=== PATIENT | female | born 1945 | race Caucasian/White ===

== ENCOUNTER → 2016-10-29 | Outpatient (CLI) | payer BC ==
[~2016-10-29] MED LIST: ASPI81TA28 PO; CALC-358 PO; MULT-190 PO; MULT-506 PO; MULT-580 PO
--- NOTE | 2016-10-29 13:23 | DIAGNOSTIC IMAGING REPORT ---
LUMBAR SPINE 5 VIEWS HISTORY: Pain M54.5 Low back [id number] COMPARISON: None. FINDINGS: There is no fracture. Grade 2 anterolisthesis of L4 on L5. 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 Mild degenerative intervertebral this changes throughout. More significant degenerative change at L4-L5 and L5-S1. IMPRESSION: No fracture within the lumbar spine. Degenerative change. Scoliosis. No acute process. Electronically signed by: Alfredo Alcala M.D. 10/29/2016 1:22 PM Dictated Date/Time: 10/29/2016 1:20 PM
== END | disposition home or self-care (01) ==
LOC: C.RADBC 12:47
PROVIDERS: ATTEND Family Medicine
DX: M54.5 Low back pain (principal)

== ENCOUNTER → 2016-12-31 | Outpatient (CLI) | payer BC ==
[~2016-12-31] MED LIST changes: +ASPI-232 PO; +BIOTCAP2; +DENO60SO INJ; +GADAVIST IV PRN; +TYLOTC500 PO
[2016-12-31 09:58] LABS: BLOOD UREA NITROGEN 17 mg/dl (7-18); BUN/CREATININE RATIO 17.8 (10-20); CALCIUM 9.6 mg/dl (8.5-10.1); CARBON DIOXIDE 30 mmol/L (21-32); CHLORIDE 103 mmol/L (98-107); CREATININE 0.93 mg/dl (0.60-1.20); GLUCOSE 92 mg/dl (70-99); POTASSIUM 4.2 mmol/L (3.5-5.1); SODIUM 139 mmol/L (136-145)
--- NOTE | 2016-12-31 11:20 | DIAGNOSTIC IMAGING REPORT ---
MRI OF THE LUMBAR SPINE WITH AND WITHOUT CONTRAST CLINICAL HISTORY: Low back pain. Bilateral lower extremity numbness. COMPARISON STUDY: Lumbar spine radiographs October 29, 2016. TECHNIQUE: Utilizing a 1.5 Alexus magnet and dedicated coil, multiplanar, multiecho imaging of the lumbar spine was performed before and after uneventful IV administration of 4.5 mL of Gadavist. FINDINGS: For purposes of numbering on this exam, the L5-S1 disc space is assigned to axial image 27 of 33. There is mild to moderate S-shaped scoliosis of the focal lumbar spine. No suspicious marrow replacement is present. 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 There is no intracanalicular mass. Conus terminates at the upper L1 level. Paravertebral soft tissues are unremarkable. Note is made of a 5 mm anterolisthesis of L4 and L5 and 4 mm anterolisthesis of L5 on S1. No pars defects are identified although these are suboptimally assessed by MRI. L1-2: Central canal and neural foramen are patent. L2-3: Central canal and neural foramen are patent. L3-4: Central canal and neural foramina patent. L4-5: There is grade I anterolisthesis with uncovering of the disc. The central canal is patent. There is moderate left and mild right neural foraminal stenosis. L5-S1: There is grade I anterolisthesis. There is mild narrowing of the central canal. There is mild to moderate narrowing of both neural foramen. IMPRESSION: 1. Grade I anterolisthesis of L4 and L5 and L5 on S1. 2. Mild to moderate S-shaped scoliosis of the thoracolumbar spine. 3. Mild central canal stenosis at L5-S1. 4. Multilevel neural foraminal stenosis most pronounced at the L4-L5 level, as described above. Electronically signed by: Krishna Walker M.D. 12/31/2016 11:18 AM Dictated Date/Time: 12/31/2016 11:06 AM
== END | disposition home or self-care (01) ==
LOC: C.MRI 09:22
PROVIDERS: ATTEND Physician Assistant
DX: M54.5 Low back pain (principal)

== ENCOUNTER → 2017-07-02 | Outpatient (CLI) | payer BC ==
[~2017-07-02] MED LIST changes: -ASPI-232 PO; -BIOTCAP2; -GADAVIST IV PRN
[2017-07-02 13:25] VITALS: BP 113/67; PULSE 60; TEMP 36.9; O2SAT 98
--- NOTE | 2017-07-02 14:29 | Radiation Oncology Follow-Up ---
Radiation Oncology Follow-Up Date of Visit Jul 02, 2017. 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 She is being followed by Dr. Apple. She had been noted to have a fold on the lateral aspect of the breast. She has discomfort associated with this area. It was felt that the implant had shifted. She has noted no masses and no change of the axilla. She had an MRI to evaluate the implant in the past. This did not show any evidence of rupture. There was no MRI evidence of malignancy. She was seen in medical oncology and referred to Dr. Apple. She will be undergoing replacement of the implant next week. She continues with follow-up mammography of the right breast. Allergies Coded Allergies: Codeine (Verified Allergy, Mild, SHAKY, 07/06/15) NERVOUS AND SHAKY. Home Medications Scheduled Aspirin (Aspirin Ec), 81 MG PO DAILY Calcium Citrate-Vitamin D (Calcium Citrate+ D), 1 TAB PO BID Multiple Vitamins W/ Minerals (Hair/Skin/Nails), PO TID Multivitamin (Multivitamin), 1 TAB PO QAM Ocuvite Preservision (Ocuvite Preservision), 1 TAB PO BID Review of Systems Gastrointestinal: Symptoms: WNL Oral: Symptoms: No Problems Respiratory: Symptoms: WNL Urinary: Symptoms: WNL Skin: Symptoms: No Problems Breast: Right Upper Arm Measurement: 23.5 Right Mid Arm Measurement: 21.0 Right Wrist Measurement: 14.3 Left Upper Arm Measurement: 22.5 Left Mid Arm Measurement: 20.5 Left Wrist Measurement: 14.5 Arm Dominence: Right Physical Exam Vital Signs Date Time Temp Pulse Resp B/P (MAP) Pulse Ox O2 Delivery O2 Flow Rate FiO2 07/02/17 13:25 36.9 60 20 113/67 98 Pain: Patient Pain Scale: 0 - 10 Initial Pain Intensity: 4.0 Fatigue: None General Appearance: no apparent distress Eyes: normal inspection, EOMI ENT: normal ENT inspection, hearing grossly normal Neck: no adenopathy, thyroid normal Respiratory/Chest: lungs clear, no respiratory distress, no accessory muscle use Breast: Breast examination reveals implant of the left breast. The incision area is well-healed. She has a mild indentation of the lateral medial aspect of the breast. There are no masses or tenderness and no axillary adenopathy. The nipple is tattooed on. There is no telangiectasia. Using the [place] score cosmesis she has a good outcome. The right breast showed no masses or tenderness and no axillary adenopathy. Cardiovascular: regular rate, rhythm, no gallop, no murmur Abdomen: non tender, soft Extremities: no pedal edema Neurologic/Psychiatric: no motor/sensory deficits, alert, normal mood/affect Skin: warm/dry Lymphatic: no adenopathy Additional Studies Patient: SUZY SMITH [facility] Rec: [id number] Address1: [address] [place] [address] Address2: [facility] ID: [id number] Date: 1945 Sex: F Ref Phy: Att Phy: Thom Boston D.O.Int.Med. Cara Phy: Thom Boston D.O.Int.Med. Inter Phy: Pk Davis [facility] Zip: [place] [address] SC: C.MAMM Report #: [id number] Home Theater Installer: KILLIAN Diagnosis: ASYMPTOMATIC, LEFT BREAST CA, IMPLANT Service Date: 07/28/16 MNE: [id number] Ordering Dr: Thom Boston D.O. CC: Thom Boston D.O.Int.Med. CONF: DICTATED BY: Pk Davis MD MAMMOGRAPHY REPORT UNILATERAL RIGHT DIGITAL SCREENING MAMMOGRAM TOMOSYNTHESIS WITH CAD: 07/28/2016 CLINICAL HISTORY: Asymptomatic. Personal history of breast cancer. TECHNIQUE: Breast tomosynthesis, in addition to standard 2D mammography was performed.. Current study was also evaluated with a Computer Aided Detection ( CAD) system. COMPARISON: Comparison is made to exams dated: 07/24/2015 mammogram, 07/05/2014 mammogram, and 07/04/2013 mammogram - [facility]. BREAST COMPOSITION: The tissue of the right breast is heterogeneously dense, which may obscure small masses. FINDINGS: There are benign vascular calcifications in the right breast. No suspicious mass, architectural distortion or cluster of microcalcifications is seen. There has been no significant interval change. IMPRESSION: IMPRESSION: ACR BI-RADS CATEGORY 2: BENIGN There is no mammographic evidence of malignancy. A 1 year screening mammogram is recommended. The patient will receive written notification of the results. Approximately 10% of breast cancers are not detected with mammography. A negative mammographic report should not delay biopsy if a clinically suggestive mass is present. Pk Davis M.D. tc/penrad:07/28/2016 14:46:20 Embroidery Worker: Geneva HEDRICK(Sandra)(M), [facility] letter sent: Normal 1/2 BI-RADS Code: ACR BI-RADS Category 2: Benign Dictated by: Pk Davis MD Signed by: Pk Davis MD Assessment & Plan Plan: Continue regular follow-up with Dr. Apple and Dr. rai. She'll be undergoing replacement of the implant next week. She is scheduled for recheck mammography of the right breast in July. We asked her to return to our office in 1 year. She may call if she has any questions or concerns in the interim. Total Time In Follow-Up I spent 20 minutes begin to the patient performing examination. I spent 15 minutes reviewing information in completing this note. Copy To Leela Apple MD; Nenita Rai,
== END | disposition home or self-care (01) ==
LOC: C.ONC 13:01
PROVIDERS: ATTEND Physician Assistant Medical
DX: Z08 Encounter for follow-up examination after completed treatment for malignant neoplasm (principal); Z92.3 Personal history of irradiation; Z85.3 Personal history of malignant neoplasm of breast

== ENCOUNTER → 2017-07-03 | Outpatient (CLI) | payer BC | END | disposition home or self-care (01) | LOC: C.LAB 08:02 | PROVIDERS: ATTEND Family Medicine | DX: E78.5 Hyperlipidemia, unspecified (principal); M85.80 Other specified disorders of bone density and structure, unspecified site ==

== ENCOUNTER → 2017-07-29 | Outpatient (CLI) | payer BC ==
[~2017-07-29] MED LIST changes: -ASPI81TA28 PO; -MULT-190 PO; -MULT-580 PO
--- NOTE | 2017-07-30 07:51 | MAMMOGRAPHY REPORT ---
UNILATERAL RIGHT DIGITAL SCREENING MAMMOGRAM TOMOSYNTHESIS WITH CAD: 07/29/2017 CLINICAL HISTORY: Asymptomatic. Personal history of breast cancer. TECHNIQUE: Right breast tomosynthesis in addition to standard 2D mammography was performed. Current yenny valderrama was also evaluated with a Computer Aided Detection (CAD) system. COMPARISON: Comparison is made to exams dated: 07/28/2016 mammogram, 07/24/2015 mammogram, 07/05/2014 mammogram - [facility], 06/20/2011 mammogram, and 06/22/2012 mammogram - [facility] urg. BREAST COMPOSITION: The tissue of the right breast is heterogeneously dense, which may obscure small masses. FINDINGS: There are scattered benign calcifications and mild vascular calcifications in the right regina ast. Asymmetry in the superior anterior right breast on the MLO view appears very similar to the 201 0, 2011, 2012 and 2015 exams, suggesting normal fibroglandular tissue. This area demonstrated no abn ormal enhancement on prior breast MRI. No new suspicious mass, architectural distortion or cluster of microcalcifications is seen. IMPRESSION: ACR BI-RADS CATEGORY 2: BENIGN Stable mammographic appearance of the right breast, without mammographic evidence of malignancy. Con tinuation of annual screening mammography is recommended, with consideration of additional screening with breast MRI. The patient will receive written notification of the results. Approximately 10% of breast cancers are not detected with mammography. A negative mammographic report should not delay biopsy if a clinically suggestive mass is present. Savi Jimenez M.D. ay/:07/29/2017 09:57:04 Research Program Assistant: Eden HEDRICK(R)(Manuela), [facility] letter sent: Normal 1/2 BI-RADS Code: ACR BI-RADS Category 2: Benign
== END | disposition home or self-care (01) ==
LOC: C.MAMM 09:15
PROVIDERS: ATTEND Family Medicine
DX: Z12.31 Encounter for screening mammogram for malignant neoplasm of breast (principal); Z85.3 Personal history of malignant neoplasm of breast

== ENCOUNTER → 2017-08-06 | Outpatient (CLI) | payer BC ==
[~2017-08-06] MED LIST changes: +ASPI-232 PO; +BIOTCAP2; +MULT-190 PO
--- NOTE | 2017-08-06 12:45 | DIAGNOSTIC IMAGING REPORT ---
SACRUM ONLY CLINICAL HISTORY: SACROCOCCYGEAL PAIN COMPARISON STUDY: No previous studies for comparison. FINDINGS: There are moderate degenerative changes in the lower lumbar spine. There is a grade 1 spinal listhesis of L4 and L5 and L5 and S1. No sacral fractures are visualized. No destructive lesions are delineated. There is a large amount of stool present within the sigmoid colon. There is no conventional radiographic evidence of sacroiliitis. IMPRESSION: 1. Moderate degenerative changes in the lower lumbar spine 2. No sacral fractures identified 3. Large amount of stool present within the lower colon. Electronically signed by: Cristhian Brasher M.D. 08/06/2017 12:43 PM Dictated Date/Time: 08/06/2017 12:42 PM
== END | disposition home or self-care (01) ==
LOC: C.RADBC 11:59
PROVIDERS: ATTEND Physician Assistant
DX: M54.5 Low back pain (principal); K59.00 Constipation, unspecified

== ENCOUNTER → 2017-10-19 | Outpatient (CLI) | payer BC ==
[2017-10-19 12:35] LABS: BASO % 0.3 %; BASO ABS # 0.02 K/uL (0-0.2); EOS % 2.1 %; EOS ABS # 0.13 K/uL (0-0.5); HEMATOCRIT 41.5 % (37-47); HEMOGLOBIN 13.6 g/dL (12.0-16.0); IG# 0.01 K/uL (0.00-0.02); LYMPH % 17.7 %; LYMPH ABS # 1.12 K/uL (1.2-3.4); MEAN CELL VOLUME 97.2 fL (80-100); MEAN CORPUSCULAR HEMOGLOBIN 31.9 pg (25-34); MEAN CORPUSCULAR HGB CONC 32.8 g/dl (32-36); MEAN PLATELET VOLUME 10.5 fL (7.4-10.4); MONO % 10.3 %; MONO ABS # 0.65 K/uL (0.11-0.59); NEUT % 69.4 %; NEUT ABS # 4.39 K/uL (1.4-6.5); PLATELET COUNT 247 K/uL (130-400); RED CELL DISTRIBUTION WIDTH CV 14.8 % (11.5-14.5); RED CELL DISTRIBUTION WIDTH SD 52.6 fL (36.4-46.3); WHITE BLOOD COUNT 6.32 K/uL (4.8-10.8)
[2017-10-19 12:56] LABS: ALT/SGPT 21 U/L (12-78); BLOOD UREA NITROGEN 14 mg/dl (7-18); CALCIUM 9.8 mg/dl (8.5-10.1); CARBON DIOXIDE 26 mmol/L (21-32); CREATININE 0.94 mg/dl (0.60-1.20); GLUCOSE 102 mg/dl (70-99); POTASSIUM 3.6 mmol/L (3.5-5.1); SODIUM 135 mmol/L (136-145)
[2017-10-19 12:59] LABS: ALKALINE PHOSPHATASE 59 U/L (45-117); AST/SGOT 17 U/L (15-37); TOTAL PROTEIN 7.1 gm/dl (6.4-8.2)
== END | disposition home or self-care (01) ==
LOC: C.LABPBG 10:07
PROVIDERS: ATTEND Internal Medicine Hematology & Oncology
DX: C50.812 Malignant neoplasm of overlapping sites of left female breast (principal)

== ENCOUNTER → 2017-11-16 | Outpatient (CLI) | payer BC | END | disposition home or self-care (01) | LOC: C.MAMM 11:05 | PROVIDERS: ATTEND Internal Medicine Hematology & Oncology | DX: M85.88 Other specified disorders of bone density and structure, other site (principal); C50.919 Malignant neoplasm of unspecified site of unspecified female breast ==

== ENCOUNTER → 2018-04-02 | Outpatient (CLI) | payer BC ==
[2018-04-02 17:14] LABS: BASO % 0.5 %; BASO ABS # 0.02 K/uL (0-0.2); EOS % 2.7 %; EOS ABS # 0.11 K/uL (0-0.5); HEMATOCRIT 41.9 % (37-47); HEMOGLOBIN 13.6 g/dL (12.0-16.0); LYMPH % 25.1 %; LYMPH ABS # 1.04 K/uL (1.2-3.4); MEAN CELL VOLUME 96.1 fL (80-100); MEAN CORPUSCULAR HEMOGLOBIN 31.2 pg (25-34); MONO % 10.6 %; MONO ABS # 0.44 K/uL (0.11-0.59); NEUT % 61.1 %; NEUT ABS # 2.54 K/uL (1.4-6.5); PLATELET COUNT 235 K/uL (130-400); RED CELL DISTRIBUTION WIDTH CV 14.9 % (11.5-14.5); RED CELL DISTRIBUTION WIDTH SD 52.9 fL (36.4-46.3); WHITE BLOOD COUNT 4.15 K/uL (4.8-10.8)
[2018-04-02 17:20] LABS: MEAN CORPUSCULAR HGB CONC 32.5 g/dl (32-36)
[2018-04-02 17:24] LABS: BLOOD UREA NITROGEN 17 mg/dl (7-18); CALCIUM 9.6 mg/dl (8.5-10.1); CARBON DIOXIDE 29 mmol/L (21-32); CREATININE 0.96 mg/dl (0.60-1.20); GLUCOSE 95 mg/dl (70-99); POTASSIUM 4.2 mmol/L (3.5-5.1); SODIUM 137 mmol/L (136-145)
--- NOTE | 2018-04-19 07:19 | CODING QUERY MEDICAL NECESSITY ---
TREATMENT RENDERED WITHOUT A DIAGNOSIS To promote full compliance with coding requirements relating to patient care, physician participation is requested in all cases of shipwright apprentice uncertainty. Please assist us with providing a diagnosis/symptom for the test(s) below: A diagnosis/symptom was not documented on your Order. A valid diagnosis/symptom is required to bill all insurances. Please remember that we are unable to code a diagnosis of rule out, probable, possible, questionable, or suspected. Tests that require a diagnosis: DOS: 04/02/18 * CBC W/ AUTO DIFF DIAGNOSIS: * PARTIAL RENAL PROFILE DIAGNOSIS: Provider Signature: Date: Thank you Julia Cheema [employer] Once completed, please kindly fax back to [phone] For questions please call [phone]
== END | disposition home or self-care (01) ==
LOC: C.LABPBG 11:16
PROVIDERS: ATTEND Ophthalmology
DX: H33.22 Serous retinal detachment, left eye (principal)

== ENCOUNTER → 2018-04-26 | Outpatient (CLI) | payer BC ==
[2018-04-26 12:51] LABS: BASO % 0.3 %; BASO ABS # 0.02 K/uL (0-0.2); EOS % 2.5 %; EOS ABS # 0.15 K/uL (0-0.5); HEMATOCRIT 40.9 % (37-47); HEMOGLOBIN 13.2 g/dL (12.0-16.0); IG# 0.01 K/uL (0.00-0.02); LYMPH % 21.4 %; LYMPH ABS # 1.29 K/uL (1.2-3.4); MEAN CELL VOLUME 96.7 fL (80-100); MEAN CORPUSCULAR HEMOGLOBIN 31.2 pg (25-34); MEAN CORPUSCULAR HGB CONC 32.3 g/dl (32-36); MEAN PLATELET VOLUME 10.9 fL (7.4-10.4); MONO % 6.3 %; MONO ABS # 0.38 K/uL (0.11-0.59); NEUT % 69.3 %; NEUT ABS # 4.19 K/uL (1.4-6.5); PLATELET COUNT 235 K/uL (130-400); RED CELL DISTRIBUTION WIDTH CV 14.9 % (11.5-14.5); RED CELL DISTRIBUTION WIDTH SD 52.6 fL (36.4-46.3); WHITE BLOOD COUNT 6.04 K/uL (4.8-10.8)
[2018-04-26 13:46] LABS: ALKALINE PHOSPHATASE 62 U/L (45-117); ALT/SGPT 27 U/L (12-78); AST/SGOT 23 U/L (15-37); BLOOD UREA NITROGEN 18 mg/dl (7-18); CALCIUM 8.7 mg/dl (8.5-10.1); CARBON DIOXIDE 26 mmol/L (21-32); CREATININE 0.92 mg/dl (0.60-1.20); GLUCOSE 80 mg/dl (70-99); POTASSIUM 4.1 mmol/L (3.5-5.1); SODIUM 137 mmol/L (136-145); TOTAL PROTEIN 7.2 gm/dl (6.4-8.2)
== END | disposition home or self-care (01) ==
LOC: C.LABPBG 09:13
PROVIDERS: ATTEND Internal Medicine Hematology & Oncology
DX: C50.812 Malignant neoplasm of overlapping sites of left female breast (principal)